=== PATIENT | female | born 1940 | race Caucasian/White ===

== ENCOUNTER 2020-05-16 11:52 | Emergency (ER) | payer MEDICARE, BC ==
--- NOTE | 2020-05-16 12:33 | ED ---
Fall HPI - General Chief Complaint: Fall Stated Complaint: Fall Time Seen by Provider: 05/16/20 11:59 Source: patient, family, RN notes reviewed Mode of arrival: ambulatory Limitations: no limitations - History of Present Illness Initial Comments: 79-year-old female presents emergency Department with chief complaint of trip and fall. Patient was going to the store states that she slipped, falling striking her face. Patient did not lose conscious. Patient is went of headache, dizziness, neck pain or back pain. Patient has complaint of mild right fifth digit pain. No wrist pain no other complaints. Patient does not take any blood thinners. No blurred vision no nausea vomiting. - Related Data Home Medications Medication Instructions Recorded Confirmed Acetaminophen Tab [Tylenol Tab] 500 mg PO Q6H PRN 09/14/15 09/24/15 Cholecalciferol [Vitamin D3] 2,000 unit PO MOWEFR 09/14/15 09/24/15 Metoclopramide [Reglan] 10 mg PO BID 09/14/15 09/24/15 Omeprazole [PriLOSEC] 20 mg PO BID 09/14/15 09/24/15 Oxybutynin Chloride 5 mg PO TID 09/14/15 09/24/15 Simvastatin [Zocor] 20 mg PO HS 09/14/15 09/24/15 amLODIPine [Norvasc] 5 mg PO DAILY 09/14/15 09/24/15 traMADol HCL [Ultram] 50 mg PO Q4H PRN 09/14/15 09/24/15 Previous Rx's Medication Instructions Recorded Docusate [Colace] 100 mg PO BID #60 capsule 09/28/15 HYDROcodone/APAP 7.5-325MG [[place] 1 - 2 each PO Q6HR PRN #90 tab 09/28/15 7.5-325] Warfarin [Coumadin] 2.5 mg PO DAILY #28 tab 09/28/15 Allergies Allergy/AdvReac Type Severity Reaction Status Date / Time meperidine HCl [From Demerol] Allergy Nausea & Verified 05/16/20 11:58 Vomiting Review of Systems ROS Statement: Those systems with pertinent positive or pertinent negative responses have been documented in the HPI. ROS Other: All systems not noted in ROS Statement are negative. Past Medical History Past Medical History: Cancer, GERD/Reflux, Hyperlipidemia, Hypertension, Osteoarthritis (OA) Additional Past Medical History / Comment(s): occ. esophageal reflux with chest discomfort, varicose veins, overactive bladder-urinary leakage, CLL leukemia, uses walker, can not swallow large pills History of Any Multi-Drug Resistant Organisms: None Reported Past Surgical History: Section, Hysterectomy Additional Past Surgical History / Comment(s): 09-24-15 TOTAL RT KNEE Past Anesthesia/Blood Transfusion Reactions: Motion Sickness, Postoperative Nausea & Vomiting (PONV) Additional Past Anesthesia/Blood Transfusion Reaction / Comment(s): PAST BLOOD TRANSFUSION 1968-NO REACTION Past Psychological History: No Psychological Hx Reported Smoking Status: Never smoker Past Alcohol Use History: None Reported Past Drug Use History: None Reported - Past Family History Mother Family Medical History: Myocardial Infarction ([place]) Father Family Medical History: Myocardial Infarction ([place]) General Exam Limitations: no limitations General appearance: alert, in no apparent distress Head exam: Present: atraumatic, normocephalic, normal inspection Eye exam: Present: PERRL, EOMI. Absent: normal appearance, scleral icterus, conjunctival injection, periorbital swelling ENT exam: Present: normal exam, normal oropharynx, mucous membranes moist Neck exam: Present: normal inspection, full ROM. Absent: tenderness, meningismus, lymphadenopathy Respiratory exam: Present: normal lung sounds bilaterally. Absent: respiratory distress, wheezes, rales, rhonchi, stridor Cardiovascular Exam: Present: regular rate, normal rhythm, normal heart sounds. Absent: systolic murmur, diastolic murmur, rubs, gallop, clicks Course Vital Signs 05/16/20 05/16/20 05/16/20 11:53 12:58 13:55 Temperature 98 F Pulse Rate 94 81 88 Respiratory 18 20 20 Rate Blood Pressure 156/74 138/84 149/84 O2 Sat by Pulse 98 99 99 Oximetry Medical Decision Making - Medical Decision Making CT of the brain and facial bones and C-spine are negative for acute intracranial hemorrhage fracture and acute changes. Patient will be discharged in stable condition return parameters were discussed. Disposition Clinical Impression: Fall, Periorbital hematoma of right eye, Head injury Disposition: HOME SELF-CARE Condition: Stable Instructions (If sedation given, give patient instructions): Head Injury (ED) Additional Instructions: Please return to the Emergency Department if symptoms worsen or any other concerns. Is patient prescribed a controlled substance at d/c from ED?: No Referrals: Saji Solorio MD [Primary Care Provider] - 1-2 days Time of Disposition: 14:10
--- NOTE | 2020-05-16 13:11 | XR ---
EXAMINATION TYPE: XR hand complete RT DATE OF EXAM: 05/16/2020 COMPARISON: None HISTORY: Pain TECHNIQUE: Three-view right hand FINDINGS: Degenerative joint changes are present to the proximal and distal interphalangeal joint spa yamila. No acute fractures or dislocations are evident. The soft tissues appear normal. IMPRESSION: 1. Moderately advanced degenerative joint changes within the proximal distal interphalangeal joint s paces. 2. No acute osseous abnormality.
[2020-05-16 13:55] VITALS: RESP 20
--- NOTE | 2020-05-16 14:06 | CT ---
EXAMINATION TYPE: CT facial bones wo con DATE OF EXAM: 05/16/2020 COMPARISON: None HISTORY: Fall, bruising and swelling to Rt eye CT DLP: 836.3 mGycm CONTRAST: 0 mL of Isovue 300 The facial bones are examined in the axial plane at 2 mm thick sections. Reconstructed images in the coronal plane were obtained. There is dental amalgam scatter artifact. Soft tissue swelling over the right orbit. The globes appear symmetrical. Greater wings of the spheno id are intact. Zygomatic arches are intact. Nasal bones appear intact. Maxillary sinuses ethmoid air cells frontal sinuses and sphenoid sinus are clear. Mastoid air cells are clear. Hyperostosis frontal is internus, normal variant is present. The septum is evaluated. There is septal deviation to the right. The ostiomeatal units are patent. There is a left mike bullosa. IMPRESSIONS: 1. No acute fractures identified. 2. Soft tissue swelling over the right orbit.
--- NOTE | 2020-05-16 14:06 | CT ---
EXAMINATION TYPE: CT brain cspine wo con DATE OF EXAM: 05/16/2020 COMPARISON: None HISTORY: Fall, bruising and swelling to Rt eye CT DLP: 836.3 mGycm Automated exposure control for dose reduction was used. Ventricles have normal size. There is no mass effect nor midline shift. There is no sign of intracran ial hemorrhage. Calvarium is intact. The skull base is intact. There is normal aeration of the mastoi d sinuses. There is right side periorbital soft tissue swelling. Cervical vertebra have normal alignment. Disc spaces are slightly narrowed at C5-6 and C6-7. There is no compression fracture. There is multilevel mild hypertrophic facet arthropathy. Prevertebral soft tissues are intact. IMPRESSION: Negative CT scan of the brain. Mild degenerative disc changes in the lower cervical spine. No fracture. Tiny nodular densities noted at the lung apices consistent with old granulomatous disease.
[2020-05-16 14:27] VITALS: BP 143/72; PULSE 80; TEMP 98.3
== END 2020-05-16 14:15 | disposition home or self-care (01) ==
LOC: EC 11:52
DX: S00.11XA Contusion of right eyelid and periocular area, initial encounter (principal); S09.90XA Unspecified injury of head, initial encounter; I10 Essential (primary) hypertension; K21.9 Gastro-esophageal reflux disease without esophagitis; E78.5 Hyperlipidemia, unspecified; Z79.899 Other long term (current) drug therapy; Z85.6 Personal history of leukemia; Z88.5 Allergy status to narcotic agent; W01.198A Fall on same level from slipping, tripping and stumbling with subsequent striking against other object, initial encounter; Y93.01 Activity, walking, marching and hiking
CPT/HCPCS: 70450; 70486; 72125; 99284

== ENCOUNTER → 2020-05-28 | Outpatient (CLI) | payer MEDICARE, BC | END | disposition home or self-care (01) | LOC: LABWHC1 15:37 | PROVIDERS: ATTEND Internal Medicine | DX: Z20.822 Contact with and (suspected) exposure to COVID-19 (principal) | CPT/HCPCS: U0003; C9803; U0005 ==

== ENCOUNTER → 2020-06-19 | Outpatient (CLI) | payer MEDICARE, BC | END | disposition home or self-care (01) | LOC: LABWHC1 16:59 | PROVIDERS: ATTEND Internal Medicine | DX: Z20.822 Contact with and (suspected) exposure to COVID-19 (principal) | CPT/HCPCS: U0003; C9803; U0005 ==

== ENCOUNTER → 2022-08-04 | Outpatient (CLI) | payer MEDICARE, BC ==
[2022-08-04 11:42] LABS: African American GFR (CKD) 83 (>60 ml/min/1.73 sqM); Blood Urea Nitrogen 15 mg/dL (7-17); Non-African American GFR(CKD) 72 (>60 ml/min/1.73 sqM)
--- NOTE | 2022-08-04 12:37 | CT ---
EXAMINATION TYPE: CT brain wo/w con CT DLP: 1998.6 mGycm, Automated exposure control for dose reduction was used. DATE OF EXAM: 08/04/2022 12:27 PM COMPARISON: CT brain C-spine 05/16/2020. CLINICAL INDICATION:Female, 82 years old with history of G31.84 mild cognitive impairment; PHH, confu maximino, memory loss TECHNIQUE: Axial CT images of the brain were obtained followed by contrast enhanced axial images of t he brain with 100 cc of ISO-view 300 IV contrast. One or more CT dose reduction strategies were utili zed during this examination. Coronal and sagittal reformats reviewed. FINDINGS: Extra-axial spaces: No abnormal extra-axial fluid collections. Ventricular system: Within normal limits Cerebral parenchyma: Cerebral atrophy. No acute intraparenchymal hemorrhage or mass effect. The allen -white junction is well differentiated. No abnormal enhancement is seen after the administration of i ntravenous contrast. Cerebellum: Unremarkable. Mass effect: No evidence of midline shift. Intracranial vasculature: unremarkable Soft tissues: Normal. Calvarium/osseous structures: No depressed skull fracture. Paranasal sinuses and mastoid air cells: Clear. Visualized orbits: Orbital contents are intact. IMPRESSION: Mild to moderate diffuse age-appropriate cerebral atrophy with no acute intracranial process and no e vidence to suggest intracranial mass.
== END | disposition home or self-care (01) ==
LOC: RADCTMAIN 10:56
PROVIDERS: ATTEND Family Medicine
DX: G31.84 Mild cognitive impairment of uncertain or unknown etiology (principal); G31.1 Senile degeneration of brain, not elsewhere classified
CPT/HCPCS: 82565; 84520; 70470; 36415; Q9967

== ENCOUNTER → 2023-06-22 | Outpatient (CLI) | payer MEDICARE, BC ==
--- NOTE | 2023-06-22 16:21 | FL ---
EXAMINATION TYPE: FL barium swallow w video DATE OF EXAM: 06/22/2023 CLINICAL HISTORY: 83-year-old female R13.10, Dysphagia. Food sticking, coughing. TECHNIQUE: Deglutition study is performed utilizing thin liquid barium, barium thick pudding, and ba rium coated cracker. Total fluoroscopy time 1 min 27 seconds. Total images: None. Real-time fluoroscopy support was provided to speech pathology. Total DAP: 10 mGycm2. COMPARISON: None. FINDINGS: The oral and pharyngeal phases show satisfactory initiation and propagation with all modalities teste d. Normal mastication is seen with solid modalities tested. There is no evidence of penetration or aspiration with any modality tested. No significant pharyngeal residue was appreciated. IMPRESSION: No penetration or aspiration. Please refer to speech therapist notes for further details if necessary.
== END | disposition home or self-care (01) ==
LOC: RADFLMAIN 11:14
PROVIDERS: ATTEND Family Medicine
DX: R13.10 Dysphagia, unspecified (principal)
CPT/HCPCS: 74230

== ENCOUNTER → 2023-09-26 | Outpatient (CLI) | payer MEDICARE, BC ==
--- NOTE | 2023-09-26 08:43 | XR ---
EXAMINATION TYPE: XR chest 2V DATE OF EXAM: 09/26/2023 8:08 AM CLINICAL INDICATION:Female, 83 years old with history of R06.02 Chronic shortness of breath; PHH COMPARISON: Chest radiographs from 08/30/2023 TECHNIQUE: XR chest 2V Frontal view of the chest. FINDINGS: Lungs/Pleura: Prominent interstitial lung markings are seen scattered throughout the lungs with marcus ening of the diaphragm and increased lucency of the lung apices. No evidence of focal consolidation, pneumothorax or pleural effusion. Pulmonary vascularity: Unremarkable. Heart/mediastinum: Cardiomediastinal silhouette is unremarkable. Atherosclerotic calcifications are seen in the aorta. Musculoskeletal: No acute osseous pathology. IMPRESSION: 1. No acute cardiopulmonary disease process. 2. COPD changes.
[2023-09-26 12:07] LABS: HCT 33.3 % (37.2-46.3); HGB 9.6 g/dL (12.0-15.0); MCH 24.1 pg (27.0-32.0); MCHC 28.8 g/dL (32.0-37.0); MCV 83.5 FL (80.0-97.0); NRBC Per 100 WBC 0 X 10*3/uL (0.00-0.01); Platelet Count 152 X 10*3/uL (140-440); RBC 3.99 X 10*6/uL (4.10-5.20); RDW 17.3 % (11.5-14.5); WBC 118.96 X 10*3/uL (4.50-10.00)
[2023-09-26 12:35] LABS: ALT 12 U/L (8-44); AST 16 U/L (13-35); Albumin 4.4 g/dL (3.8-4.9); Albumin/Globulin Ratio 2.59 Ratio (1.60-3.17); Alkaline Phosphatase 109 U/L (41-126); BUN/Creat Ratio 14.78 Ratio (12.00-20.00); Blood Urea Nitrogen 13.3 mg/dL (9.0-27.0); Calcium 9.1 mg/dL (8.7-10.3); Carbon Dioxide 25.6 mmol/L (21.6-31.8); Chloride 105 mmol/L (96-109); Chol/HDL Ratio 2.53 Ratio; Globulin 1.7 g/dL (1.6-3.3); Glucose 103 mg/dL (70-110); LDL Cholesterol,Calculated 77.3 mg/dL (0.0-131.0); Potassium 3.7 mmol/L (3.5-5.5); Sodium 143 mmol/L (135-145); Total Bilirubin 0.5 mg/dL (0.3-1.2); Total Protein 6.1 g/dL (6.2-8.2); VLDL Calculation 13.36 mg/dL (5.00-40.00)
[2023-09-26 13:05] LABS: Basophils # (M) 0 X 10*3/uL (0.00-0.10); Eosinophils # (M) 0 X 10*3/uL (0.04-0.35); Lymphocytes # (M) 107.06 X 10*3/uL (0.90-5.00); Monocytes # (M) 2.38 X 10*3/uL (0.20-1.00); Neutrophils # (M) 9.52 X 10*3/uL (1.80-7.70); Neutrophils % (M) 8 %
== END | disposition home or self-care (01) ==
LOC: LABWHC1 07:24
PROVIDERS: ATTEND Family Medicine
DX: C91.10 Chronic lymphocytic leukemia of B-cell type not having achieved remission (principal); J44.9 Chronic obstructive pulmonary disease, unspecified; I10 Essential (primary) hypertension; E78.5 Hyperlipidemia, unspecified
CPT/HCPCS: 36415; 71046; 80053; 80061; 82306; 82607; 85025